=== PATIENT | male | born 1940 | race Caucasian/White ===

== ENCOUNTER 2020-03-03 09:53 | Outpatient (REF) | payer MEDICARE, OTHER, SELFPAY ==
[2020-03-03 21:52] LABS: Abs Immature Grans 0.01 10^3/uL (0.0-0.06); Absolute Basophil Count 0.05 10^3/uL (0.0-0.2); Absolute Eosinophil Count 0.56 10^3/uL (0.0-0.7); Absolute Lymphocyte Count 0.93 10^3/uL (1.2-3.4); Absolute Monocyte Count 0.33 10^3/uL (0.1-0.8); Absolute Neutrophil Count 3.63 10^3/uL (1.2-6.7); Basophils % 0.9; Eosinophils % 10.2; HCT 34.7 % (40.0-50.0); HGB 11.2 g/dL (13.5-17.5); Immature Grans % 0.2; Lymphocytes % 16.9; MCH 29.9 pg (27.0-33.0); MCHC 32.3 % (32.0-36.0); MCV 92.5 fL (80-95); MPV 11.8 fL (8.0-11.0); Neutrophils % 65.8; Nucleated RBC 0 %; Platelet Count 120 10^3/uL (130-400); RBC 3.75 10^6/uL (4.36-5.78); RDW 13.8 % (11.8-14.1); RDW-SD 46.7 fL; WBC 5.51 10^3/uL (4.4-10.8)
[2020-03-03 22:27] LABS: Anion Gap 8.7 mmol/L (3-11); BUN 22 mg/dL (7-18); CO2 28.3 mmol/L (21.0-32.0); CREATININE 1.69 mg/dL (0.70-1.30); Calcium 8.9 mg/dL (8.5-10.1); Calculated LDL 47 mg/dL (<100); Chloride 100 mmol/L (98-107); Cholesterol 105 mg/dL (<200); Estimated GFR 39.44 (mL/min/1.73m2); Glucose 265 mg/dL (74-106); HDL Cholesterol 27 mg/dL (40-60); Potassium 4.4 mmol/L (3.5-5.1); Sodium 137 mmol/L (136-145); Triglyceride 159 mg/dL (<150)
[2020-03-03 22:45] LABS: PHOSPHORUS 3.6 mg/dL (2.6-4.7)
[2020-03-03 22:48] LABS: Vitamin D 25 Total 14.8 ng/ml (30-100)
[2020-03-05 11:26] LABS: Parathyroid Hormone,Intact 64 pg/mL (19-88)
== END 2020-03-03 10:13 ==
LOC: NCHCN 09:53
PROVIDERS: PCP Internal Medicine; Visit Provider Internal Medicine
DX: E03.9 Hypothyroidism, unspecified (principal); G47.33 Obstructive sleep apnea (adult) (pediatric); I10 Essential (primary) hypertension; J44.9 Chronic obstructive pulmonary disease, unspecified; N18.3 Chronic kidney disease, stage 3 (moderate)
CPT/HCPCS: 80048; 80061; 82306; 83970; 84100; 84443; 85025

== ENCOUNTER 2020-08-18 18:57 | Outpatient (REF) | payer MEDICARE, OTHER, SELFPAY ==
[2020-08-18 13:49] LABS: Hemoglobin A1C 7.4 % (<5.7)
[2020-08-18 13:55] LABS: BUN 24 mg/dL (7-18); CREATININE 1.9 mg/dL (0.70-1.30); Chloride 102 mmol/L (98-107); Estimated GFR 34.46 (mL/min/1.73m2); Glucose 148 mg/dL (74-106); Potassium 4.2 mmol/L (3.5-5.1); Sodium 138 mmol/L (136-145); TSH 0.57 uIU/mL (0.36-3.74)
[2020-08-18 14:10] LABS: Vitamin D 25 Total 38.2 ng/ml (30-100)
== END 2020-08-18 18:58 | disposition home or self-care (01) ==
LOC: NCHCN 18:57
PROVIDERS: PCP Internal Medicine; Visit Provider Internal Medicine
DX: E11.9 Type 2 diabetes mellitus without complications (principal); E03.9 Hypothyroidism, unspecified; N18.30 Chronic kidney disease, stage 3 unspecified
CPT/HCPCS: 80048; 82306; 83036; 84443

== ENCOUNTER 2020-08-25 19:07 | Outpatient (REF) | payer MEDICARE, OTHER, SELFPAY ==
[2020-08-25 21:17] LABS: COMMENT (LAB VIEW ONLY) 117.16 mg/dL; Microalb ug/mg Crea 58.2 ug/mg Cr
== END 2020-08-25 19:08 | disposition home or self-care (01) ==
LOC: NCHCN 19:07
PROVIDERS: PCP Internal Medicine; Visit Provider Internal Medicine
DX: E11.9 Type 2 diabetes mellitus without complications (principal)
CPT/HCPCS: 82043; 82570

== ENCOUNTER 2022-03-01 16:08 | Outpatient (REF) | payer MEDICARE, OTHER, SELFPAY ==
[2022-03-01 15:18] LABS: Abs Immature Grans 0.01 10^3/uL (0.0-0.06); Absolute Basophil Count 0.05 10^3/uL (0.0-0.2); Absolute Eosinophil Count 0.48 10^3/uL (0.0-0.7); Absolute Lymphocyte Count 0.75 10^3/uL (1.2-3.4); Absolute Monocyte Count 0.44 10^3/uL (0.1-0.8); Absolute Neutrophil Count 3.69 10^3/uL (1.2-6.7); Basophils % 0.9; Eosinophils % 8.9; HCT 29.3 % (40.0-50.0); HGB 9.6 g/dL (13.5-17.5); Immature Grans % 0.2; Lymphocytes % 13.8; MCH 29.4 pg (27.0-33.0); MCHC 32.8 % (32.0-36.0); MCV 90 fL (80-95); MPV 11.5 fL (8.0-11.0); Monocytes % 8.1; Neutrophils % 68.1; Platelet Count 154 10^3/uL (130-400); RBC 3.26 10^6/uL (4.36-5.78); RDW 15.2 % (11.8-14.1); RDW-SD 49.2 fL; WBC 5.42 10^3/uL (4.4-10.8)
[2022-03-01 15:32] LABS: Iron 44 ug/dL (65-175); Total Iron Binding Capacity 225 ug/dL (250-450); Transferrin Sat 20 % (20-55)
[2022-03-01 15:38] LABS: ALT 13 U/L (16-63); AST 14 U/L (15-37); Alkaline Phosphatase 64 U/L (46-116); Anion Gap 8.1 mmol/L (3-11); BUN 24 mg/dL (7-18); Bilirubin, Direct 0.1 mg/dL (0.0-0.2); Bilirubin, Total 0.3 mg/dL (0.2-1.0); CO2 27.9 mmol/L (21.0-32.0); CREATININE 2.4 mg/dL (0.70-1.30); Calcium 8.3 mg/dL (8.5-10.1); Chloride 102 mmol/L (98-107); Estimated GFR 26.61 (mL/min/1.73m2); Glucose 150 mg/dL (74-106); Potassium 4.3 mmol/L (3.5-5.1); Sodium 138 mmol/L (136-145); TSH 2.33 uIU/mL (0.36-3.74); Total Protein 6.9 g/dL (6.4-8.2)
[2022-03-01 16:26] LABS: Ferritin 27 ng/mL (26-388); Vitamin B12 523 pg/mL (193-986)
== END 2022-03-01 16:09 | disposition home or self-care (01) ==
LOC: NCHCN 16:08
PROVIDERS: PCP Internal Medicine; Visit Provider Internal Medicine
DX: E55.9 Vitamin D deficiency, unspecified (principal); N18.30 Chronic kidney disease, stage 3 unspecified; D64.9 Anemia, unspecified; E11.9 Type 2 diabetes mellitus without complications; E03.9 Hypothyroidism, unspecified; D69.6 Thrombocytopenia, unspecified
CPT/HCPCS: 80048; 80076; 82607; 82728; 83540; 83550; 84443; 85025

== ENCOUNTER 2023-01-14 10:58 | Outpatient (REF) | payer MEDICARE, OTHER, SELFPAY ==
[2023-01-14 14:35] LABS: HCT 25.8 % (40.0-50.0); MCH 27.9 pg (27.0-33.0); MCV 90 fL (80-95); MPV 11.4 fL (8.0-11.0); Platelet Count 176 10^3/uL (130-400); RBC 2.87 10^6/uL (4.36-5.78); RDW 14.9 % (11.8-14.1); WBC 6.02 10^3/uL (4.4-10.8)
[2023-01-14 14:54] LABS: ALT 11 U/L (16-63); AST 14 U/L (15-37); Albumin 2.6 g/dL (3.4-5.0); Alkaline Phosphatase 66 U/L (46-116); Anion Gap 8.3 mmol/L (3-11); BUN 32 mg/dL (7-18); Bilirubin, Total 0.3 mg/dL (0.2-1.0); CO2 25.7 mmol/L (21.0-32.0); CREATININE 2.3 mg/dL (0.70-1.30); Calcium 8.5 mg/dL (8.5-10.1); Chloride 106 mmol/L (98-107); Estimated GFR 27.83 (mL/min/1.73m2); Ferritin 15 ng/mL (26-388); Glucose 122 mg/dL (74-106); Potassium 4.6 mmol/L (3.5-5.1); Sodium 140 mmol/L (136-145); Total Protein 6.8 g/dL (6.4-8.2)
[2023-01-14 15:05] LABS: Vitamin D 25 Total 23.3 ng/mL (30-100)
[2023-01-14 15:20] LABS: Iron 58 ug/dL (65-175); Total Iron Binding Capacity 222 ug/dL (250-450); Transferrin Sat 26 % (20-55)
== END 2023-01-14 10:59 | disposition home or self-care (01) ==
LOC: NCHCN 10:58
PROVIDERS: PCP Internal Medicine; Visit Provider Internal Medicine
DX: E61.1 Iron deficiency (principal); D64.9 Anemia, unspecified; D69.6 Thrombocytopenia, unspecified; N18.30 Chronic kidney disease, stage 3 unspecified; E55.9 Vitamin D deficiency, unspecified
CPT/HCPCS: 80053; 82306; 85027; 82728; 83540; 83550

== ENCOUNTER 2023-01-21 09:34 | Outpatient (REF) | payer MEDICARE, OTHER, SELFPAY ==
[2023-01-21 16:11] LABS: COMMENT (LAB VIEW ONLY) 47.41 mg/dL; Microalb ug/mg Crea 30.4 ug/mg Cr
== END 2023-01-21 09:35 | disposition home or self-care (01) ==
LOC: NCHCN 09:34
PROVIDERS: PCP Internal Medicine; Visit Provider Internal Medicine
DX: E11.9 Type 2 diabetes mellitus without complications (principal); N18.30 Chronic kidney disease, stage 3 unspecified; E61.1 Iron deficiency; E55.9 Vitamin D deficiency, unspecified; D64.9 Anemia, unspecified
CPT/HCPCS: 82043; 82570